=== PATIENT | female | born 1980 | race African-American/Black ===

== ENCOUNTER 2018-05-10 12:13 | Emergency (ER) | payer MEDICAID ==
[~2018-05-10] VITALS: Ht 172.7 cm; Wt 115.0 kg
[~2018-05-10 12:13] MED LIST: TRILEPTAL
[2018-05-10 13:12] LABS: BASOPHILS % 0.6 % (0.0-2.0); EOSINOPHILS % 0.8 % (0.0-5.0); HEMATOCRIT. 39.2 % (36.0-48.0); HEMOGLOBIN. 12.9 g/dL (12.0-16.0); LYMPHOCYTES % 33.5 % (20.0-50.0); MEAN CORPUSCULAR HEMOGLOBIN 26.6 pg (28.0-32.0); MEAN CORPUSCULAR VOLUME 80.9 fL (81.0-99.0); MEAN PLATELET VOLUME 8.5 fl (7.4-10.4); MONOCYTES % 5.2 % (2.0-8.0); NEUTROPHILS % 59.9 % (40.0-76.0); PLATELET 208 x1000/uL (130-400); RED BLOOD CELL COUNT 4.85 mill/uL (4.2-5.4); RED CELL DISTRIBUTION WIDTH 14.4 % (11.6-14.6)
[2018-05-10 13:16] LABS: CHLORIDE 107 mEq/L (98-107)
[2018-05-10 13:39] LABS: B-HCG QUANTITATIVE 39363 mIU/mL (<3)
[2018-05-10 14:39] LABS: CLARITY URINE CLEAR (CLEAR); COLOR URINE YELLOW (YELLOW); KETONES URINE NEGATIVE (NEGATIVE); LEUKOCYTE ESTERASE URINE NEGATIVE (NEGATIVE); NITRITE URINE NEGATIVE (NEGATIVE); OCCULT BLOOD URINE NEGATIVE (NEGATIVE); PROTEIN URINE NEGATIVE (NEGATIVE); SPECIFIC GRAVITY URINE 1.015 (1.005-1.030); UROBILINOGEN URINE 0.2 E.U./dL (0.2-1.0)
[2018-05-10 15:00] VITALS: BP 118/76
== END 2018-05-10 15:00 | disposition home or self-care (01) ==
LOC: ER 12:13
DX: O20.0 Threatened abortion (principal); Z3A.01 Less than 8 weeks gestation of pregnancy
CPT/HCPCS: 36415; 76801; 80048; 81025; 84702; 86850; 86900; 99285

== ENCOUNTER 2018-05-29 09:15 | Emergency (ER) | payer MEDICAID ==
[~2018-05-29] VITALS: Ht 172.7 cm; Wt 118.0 kg
[2018-05-29 11:12] LABS: BASOPHILS % 0.2 % (0.0-2.0); EOSINOPHILS % 1.1 % (0.0-5.0); HEMATOCRIT. 39.2 % (36.0-48.0); HEMOGLOBIN. 12.8 g/dL (12.0-16.0); LYMPHOCYTES % 26.2 % (20.0-50.0); MEAN CORPUSCULAR HEMOGLOBIN 26.5 pg (28.0-32.0); MEAN CORPUSCULAR VOLUME 81.3 fL (81.0-99.0); MEAN PLATELET VOLUME 8.4 fl (7.4-10.4); MONOCYTES % 4.9 % (2.0-8.0); NEUTROPHILS % 67.6 % (40.0-76.0); PLATELET 205 x1000/uL (130-400); RED BLOOD CELL COUNT 4.82 mill/uL (4.2-5.4); RED CELL DISTRIBUTION WIDTH 14.5 % (11.6-14.6)
[2018-05-29 11:24] LABS: CHLORIDE 107 mEq/L (98-107)
[2018-05-29 11:55] LABS: B-HCG QUANTITATIVE 61294 mIU/mL (<3)
[2018-05-29 13:45] VITALS: BP 120/71
== END 2018-05-29 13:57 | disposition home or self-care (01) ==
LOC: ER 09:43
DX: O03.9 Complete or unspecified spontaneous abortion without complication (principal); Z3A.09 9 weeks gestation of pregnancy
CPT/HCPCS: 36415; 76801; 81025; 84702; 86850; 86900; 99285

== ENCOUNTER 2018-07-19 09:30 | Observation (INO) | payer MEDICAID ==
[~2018-07-19] VITALS: Ht 167.6 cm; Wt 120.2 kg
[2018-07-26] MEDS ORDERED: LACTATED RINGERS 1,000 ML IV SCH (06:00)
[2018-07-26 08:00] LABS: BASOPHILS % 0.5 % (0.0-2.0); EOSINOPHILS % 1.1 % (0.0-5.0); HEMATOCRIT. 35.7 % (36.0-48.0); HEMOGLOBIN. 11.8 g/dL (12.0-16.0); MEAN CORPUSCULAR HEMOGLOBIN 26.7 pg (28.0-32.0); MEAN CORPUSCULAR VOLUME 80.8 fL (81.0-99.0); MEAN PLATELET VOLUME 8.2 fl (7.4-10.4); MONOCYTES % 4.3 % (2.0-8.0); NEUTROPHILS % 72.1 % (40.0-76.0); PLATELET 196 x1000/uL (130-400); RED BLOOD CELL COUNT 4.42 mill/uL (4.2-5.4); RED CELL DISTRIBUTION WIDTH 14.8 % (11.6-14.6)
[2018-07-26 08:01] LABS: CLARITY URINE CLOUDY (CLEAR); COLOR URINE YELLOW (YELLOW); KETONES URINE NEGATIVE (NEGATIVE); LEUKOCYTE ESTERASE URINE 3+ (NEGATIVE); NITRITE URINE NEGATIVE (NEGATIVE); OCCULT BLOOD URINE NEGATIVE (NEGATIVE); PROTEIN URINE NEGATIVE (NEGATIVE); SPECIFIC GRAVITY URINE 1.017 (1.005-1.030); UROBILINOGEN URINE 0.2 E.U./dL (0.2-1.0)
[2018-07-26 08:04] LABS: CHLORIDE 110 mEq/L (98-107)
[2018-07-26 08:16] LABS: PROTHROMBIN TIME 9.7 sec (9.1-11.1)
[2018-07-26] MEDS ORDERED: FENTANYL CITRATE/PF 50MCG/ML 2ML VIAL ONE (10:03)
[2018-07-26] MEDS ORDERED: PROPOFOL 200MG/20ML VIAL IV ONE ×2 (10:03→10:13)
[2018-07-26] MEDS ORDERED: MIDAZOLAM HCL 2 MG/2 ML VIAL ONE (10:03)
[2018-07-26] MEDS ORDERED: ONDANSETRON HCL 4MG/2ML INJ ONE (10:12)
[2018-07-26] MEDS ORDERED: DEXAMETHASONE 4MG/ML 1ML VIAL ONE (10:12)
[2018-07-26] MEDS ORDERED: PNV1TABL76 PO (10:22)
[2018-07-26] MEDS ORDERED: ASPI-1159 PO (10:22)
[2018-07-26] MEDS ORDERED: INDOMETHACIN 50MG CAPSULE PO SCH ×2 (12:00→22:00)
[2018-07-26] MEDS: BUTALBITAL/ACETAMINOPHEN/CAFFEINE 50/325/40MG TABLET PO PRN (21:02)
[2018-07-27] MEDS ORDERED: CODEINE/BUTALBIT/ACETAMINOPHEN/CAFF 30/50/325/40MG CAPSULE PO PRN (06:00)
[2018-07-27] MEDS: BUTALBITAL/ACETAMINOPHEN/CAFFEINE 50/325/40MG TABLET PO PRN ×2 (06:22→11:47)
[2018-07-27] MEDS: LACTATED RINGERS 1,000 ML IV SCH ×2 (06:25→08:54)
[2018-07-27] MEDS ORDERED: CEFAZOLIN 2,000 MG in DEXT 5% WATER 100 ML IV SCH (07:00)
[2018-07-27 11:47] VITALS: BP 110/78
== END 2018-07-27 14:00 | disposition home or self-care (01) ==
LOC: OR 07-26 07:11 → EDSTATUS 07-26 09:30 → 8 EST LDRP 07-26 19:01
PROVIDERS: ADMIT Acupuncturist; ATTEND Acupuncturist
DX: O26.892 Other specified pregnancy related conditions, second trimester (principal); R51 Headache; N88.3 Incompetence of cervix uteri; O99.212 Obesity complicating pregnancy, second trimester; E66.9 Obesity, unspecified; O09.522 Supervision of elderly multigravida, second trimester; Z3A.18 18 weeks gestation of pregnancy
CPT/HCPCS: 36415; 59320; 80048; 81003; 85025; 85610; 85730; 96365; G0378; J0690; J1100; J2250; J2405; J3010; J2704; J7060; J7120